=== PATIENT | female | born 1995 | race Caucasian/White ===

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

== ENCOUNTER 2022-09-11 21:40 | Outpatient (CLI) | payer BC ==
[2022-09-11 22:47] LABS: Appearance,Urine Cloudy (Clear); Bacteria,Urine Rare /hpf; Bilirubin,Urine Negative (Negative); Blood,Urine Negative (Negative); Color,Urine Yellow; Glucose,Urine (UA) Negative (Negative); Ketones,Urine 4+ (Negative); Leukocyte Esterase,Urine Trace (Negative); Mucus,Urine Few /hpf; Nitrite,Urine Negative (Negative); PH, Urine 5.5 (5.0-8.0); Protein,Urine Trace (Negative); RBC,Urine <1 /hpf (0-5); Specific Gravity,Urine 1.025 (1.001-1.035); Squamous Epithelial Cell,Urine 6 /hpf (0-4); Urobilinogen,Urine <2.0 mg/dL (<2.0); WBC,Urine 3 /hpf (0-5)
[2022-09-11] MEDS ORDERED: DOCUSATE 100 MG CAP PO STA (23:01)
[2022-09-11] MEDS ORDERED: ONDANSETRON 4 MG/2 ML VIAL IVP STA (23:02)
[2022-09-11] MEDS ORDERED: LACTATED RINGERS 1,000 ML IV SCH (23:15)
[2022-09-12 00:11] VITALS: BP 130/74; PULSE 118; RESP 16; TEMP 97.7
--- NOTE | 2022-09-12 11:06 | P.MSEPDOC ---
Presenting Problems - Arrival Data Date of Arrival on Unit: 09/12/22 Time of Arrival on Unit: 21:40 Mode of Transport: Ambulatory - Complaint OB-Reason for Admission/Chief Complaint: Acute Nausea/Vomiting Comment: Patient arrived from home stated that she. has been nauseous, cramping and abdominal pain. [id number] today. Patient states that she has a small. diarrhea BM then felt like she still had to go but. could not. Patient states she has had regular BMS up. until today. Patient is a DOM and see a Dr. Richards out of [facility]. Patient states her only. complication this is GDM and baby LGR Medical History - Information : 1 Para: 0 Term: 0 : 0 Abortions: Spontaneous or Elective: 0 Number of Living Children: 0 - Gestational Age Gestational Age by ROCHELLE (wks/days): 34 Weeks and 1 Days - History Complications: GDM Review of Systems - Review of Systems Constitutional: No problems Breast: No problems ENT: No problems Cardiovascular: No problems Respiratory: No problems Gastrointestinal: No problems Genitourinary: No problems Musculoskeletal: No problems Neurological: No problems Skin: No problems Vital Signs - Temperature Temperature: 97.7 F Temperature Source: Temporal Artery Scan - Pulse Pulse Oximetery Pulse Rate: 118 Pulse Assessment Method: Pulse Oximetry - Respirations Respiratory Rate: 16 Oxygen Delivery Method: Room Air O2 Sat by Pulse Oximetry: 97 - Blood Pressure Right Arm Blood Pressure: 130/74 Blood Pressure Mean: 92 Blood Pressure Source: Automatic Cuff Medical Screen Scoring - Cervical Exam Dilation (cm): 0 Membranes: Intact - Assessment - Baby A Baseline FHR: 125 Heart Rate - NICHD Category: Category I (Normal) NST: Reactive Physician Notification - Physician Notified Physician Notified Date: 09/12/22 Physician Notified Time: 22:13 Physician: Taylor Moses Order Received: Yes - Notification Comment Comment: Patients LR IV bolus is finished patient states that she feels much better and. is not nauseated anymore. Patient educated on staying hydrated and discharge. instructions. S/S when to return or call Patient will follow up with DR. Ball. office tomorrow and let them know about her triage here at [facility]. IV discontinued. Patient. ambulated out of triage with S/O. Maternal Triage Index - Non-Urgent/Priority 4 Non-Urgent Priority 4: Yes Criteria Met for Priority 4: Patient arrived from home stated that she. has been nauseous, cramping and abdominal pain. [id number] today. Patient states that she has a small. diarrhea BM then felt like she still had to go but. could not. Patient states she has had regular BMS up. until today. Patient is a DOM and see a Dr. Lr. out of [facility]. Patient states her only. complication this is GDM and baby LGR Disposition - Disposition OB Disposition: Admit, Discharge to home Discharge Date: 09/12/22 Discharge Time: 23:49 I agree with the RN Medical Screening Exam: Yes Case reviewed; plan agreed upon as documented in EMR&OBIX.: Yes Diagnosis: DEHYDRATION
== END 2022-09-11 23:49 | disposition home or self-care (01) ==
LOC: FBPOP 21:40
PROVIDERS: ATTEND Obstetrics & Gynecology
DX: O99.283 Endocrine, nutritional and metabolic diseases complicating pregnancy, third trimester (principal); E86.0 Dehydration; Z3A.34 34 weeks gestation of pregnancy; O24.419 Gestational diabetes mellitus in pregnancy, unspecified control; Z88.7 Allergy status to serum and vaccine
CPT/HCPCS: 59025; 99213; 96367; 96374; 96375; 36415; 81001; J2405

== ENCOUNTER 2024-01-18 19:51 | Emergency (ER) | payer BC ==
[2024-01-18 19:56] VITALS: TEMP 97.8
--- NOTE | 2024-01-18 20:22 | ED ---
Abdominal Pain HPI - General Chief Complaint: Abdominal Pain Stated Complaint: Cramping 10 weeks Time Seen by Provider: 01/18/24 20:19 Source: patient Mode of arrival: ambulatory Limitations: no limitations - History of Present Illness Initial Comments: Patient is a -0-0-1 at approximately 10 weeks gestation (dated by her last ultrasound per patient) who presents to the ED with her boyfriend for evaluation. Patient states that she has had lower abdominal/pelvic cramping since earlier today. Patient states that her cramping is currently improved. Patient also states that she passed a "dime-sized clot" vaginally earlier today, but she has not had any further bleeding since then. Patient denies trauma or injury, fever or chills, headache, chest pain, dyspnea, palpitations, dizziness, upper abdominal pain, nausea or vomiting, diarrhea, constipation, bloody or melanotic stool, dysuria or urinary symptoms, or any other symptoms or complaints. Patient states that she gets her care from an MEDICAL DEVICE ENGINEER doctor at [facility]. - Related Data Home Medications Medication Instructions Recorded Confirmed Vit No.179/Iron/Folic 1 each PO 09/11/22 [ Tablet] Allergies Allergy/AdvReac Type Severity Reaction Status Date / Time hepatitis B virus vaccine Allergy Anaphylaxis Verified 01/18/24 19:56 Review of Systems ROS Statement: Those systems with pertinent positive or pertinent negative responses have been documented in the HPI. ROS Other: All systems not noted in ROS Statement are negative. Past Medical History Additional Past Medical History / Comment(s): hypotension during stress History of Any Multi-Drug Resistant Organisms: None Reported Past Surgical History: No Surgical Hx Reported Past Psychological History: No Psychological Hx Reported Smoking Status: Never smoker Past Alcohol Use History: None Reported Past Drug Use History: None Reported General Exam Limitations: no limitations General appearance: alert, in no apparent distress Eye exam: Present: normal appearance ENT exam: Present: mucous membranes moist Respiratory exam: Present: normal lung sounds bilaterally. Absent: respiratory distress, wheezes, rales, rhonchi, stridor Cardiovascular Exam: Present: regular rate, normal rhythm, normal heart sounds, other (Normal radial pulses bilaterally) GI/Abdominal exam: Present: soft. Absent: distended, tenderness, guarding Neurological exam: Present: alert, oriented X3 Psychiatric exam: Present: normal affect Skin exam: Present: warm, dry, normal color Course Vital Signs 01/18/24 01/18/24 19:54 23:20 Temperature 97.8 F Pulse Rate 74 82 Respiratory 16 17 Rate Blood Pressure 146/88 117/78 O2 Sat by Pulse 96 98 Oximetry - Reevaluation(s) Reevaluation #1: 01/18/24 23:16 Patient denies development of any new symptoms while in the ED, and she states that her cramping has now improved. Patient has not had any further vaginal bleeding while in the ED. Patient and boyfriend are aware the patient's test results, and patient feels comfortable being discharged home at this time. She was counseled about threatened abortions and pelvic rest. She was instructed to call her [facility] MEDICAL DEVICE ENGINEER's clinic tomorrow morning to schedule a close follow- up appointment, as well as have serial hCG levels checked-> she agrees to do so. She was clearly explained return and follow-up instructions. Medical Decision Making - Medical Decision Making Was pt. sent in by a medical professional or institution (, PA, FITTER HAND, urgent care, hospital, or retirement...) When possible be specific @ -No Did you speak to anyone other than the patient for history (EMS, parent, family, police, friend...)? What history was obtained from this source @ -No Did you review nursing and triage notes (agree or disagree)? Why? @ -I reviewed and agree with nursing and triage notes Were old charts reviewed (outside hosp., previous admission, EMS record, old EKG, old radiological studies, urgent care reports/EKG's, retirement records)? Report findings @ -No old charts were reviewed Differential Diagnosis (chest pain, altered mental status, abdominal pain women, abdominal pain men, vaginal bleeding, weakness, fever, dyspnea, syncope, headache, dizziness, GI bleed, back pain, seizure, CVA, palpatations, mental health, musculoskeletal)? @ -Vaginal bleeding, pelvic cramping, threatened , ectopic , complete , incomplete , UTI, this is not a complete list EKG interpreted by me (3pts min.). @ -None done X-rays interpreted by me (1pt min.). @ -None done CT interpreted by me (1pt min.). @ -None done What testing was considered but not performed or refused? (CT, X-rays, U/S, labs)? Why? @ -None What meds were considered but not given or refused? Why? @ -None Did you discuss the management of the patient with other professionals (professionals i.e. , PA, FITTER HAND, lab, RT, psych nurse, nephrology social worker, drawing operator, teacher, traffic control officer, caser shoe parts)? Give summary @ -No Was smoking cessation discussed for >3mins.? @ -No Was critical care preformed (if so, how long)? @ -No Were there social determinants of health that impacted care today? How? (Homelessness, low income, unemployed, alcoholism, drug addiction, transportation, low edu. Level, literacy, decrease access to med. care, longterm, rehab)? @ -No Was there de-escalation of care discussed even if they declined (Discuss DNR or withdrawal of care, Hospice)? DNR status @ -No What co-morbidities impacted this encounter? (DM, HTN, Smoking, COPD, CAD, Cancer, CVA, ARF, Chemo, Hep., AIDS, mental health diagnosis, sleep apnea, morbid obesity)? @ -None Was patient admitted / discharged? Hospital course, mention meds given and route, prescriptions, significant lab abnormalities, going to OR and other pertinent info. @ -Patient's pelvic ultrasound demonstrates a single live IUP without any complications. Patient's blood type is A+. Patient states that her cramping has improved while in the ED. Patient is in a hurry to be discharged home, and she agrees to follow-up closely with her MEDICAL DEVICE ENGINEER doctor at [facility]. She was instructed to call tomorrow morning to have serial hCG levels ordered. Will discharge patient home with her boyfriend at this time. Undiagnosed new problem with uncertain prognosis? @ -No Drug Therapy requiring intensive monitoring for toxicity (Heparin, Nitro, Insulin, Cardizem)? @ -No Were any procedures done? @ -No Diagnosis/symptom? @ -Threatened Acute, or Chronic, or Acute on Chronic? @ -[Acute Uncomplicated (without systemic symptoms) or Complicated (systemic symptoms)? @ -Uncomplicated Side effects of treatment? @ -No Exacerbation, Progression, or Severe Exacerbation? @ -No Poses a threat to life or bodily function? How? (Chest pain, USA, SD, pneumonia, PE, COPD, DKA, ARF, appy, cholecystitis, CVA, Diverticulitis, Homicidal, Suicidal, threat to staff... and all critical care pts) @ -No - Lab Data Result diagrams: 01/18/24 20:21 01/18/24 20:21 Lab Results 01/18/24 01/18/24 01/18/24 Range/Units 20:21 20:21 20:26 WBC 10.2 (3.8-10.6) k/uL RBC 4.68 (3.80-5.40) m/uL Hgb 14.0 (11.4-16.0) gm/dL Hct 42.9 (34.0-46.0) % MCV 91.7 (80.0-100.0) fL MCH 30.0 (25.0-35.0) pg MCHC 32.7 (31.0-37.0) g/dL RDW 12.8 (11.5-15.5) % Plt Count 355 (150-450) k/uL MPV 6.9 Neutrophils % 66 % Lymphocytes % 23 % Monocytes % 6 % Eosinophils % 3 % Basophils % 0 % Neutrophils # 6.7 (1.3-7.7) k/uL Lymphocytes # 2.3 (1.0-4.8) k/uL Monocytes # 0.6 (0-1.0) k/uL Eosinophils # 0.3 (0-0.7) k/uL Basophils # 0.0 (0-0.2) k/uL Sodium 136 L (137-145) mmol/L Potassium 4.0 (3.5-5.1) mmol/L Chloride 104 (98-107) mmol/L Carbon Dioxide 19 L (22-30) mmol/L Anion Gap 13 mmol/L BUN 10 (7-17) mg/dL Creatinine 0.55 (0.52-1.04) mg/dL Est GFR (CKD-EPI)AfAm >90 (>60 ml/min/1.73 sqM) Est GFR (CKD-EPI)NonAf >90 (>60 ml/min/1.73 sqM) Glucose 91 (74-99) mg/dL Calcium 10.2 (8.4-10.2) mg/dL Total Bilirubin 0.6 (0.2-1.3) mg/dL AST 24 (14-36) U/L ALT 16 (4-34) U/L Alkaline Phosphatase 63 (38-126) U/L Total Protein 7.0 (6.3-8.2) g/dL Albumin 4.1 (3.5-5.0) g/dL Lipase 75 (23-300) U/L HCG, Quant 94564.7 mIU/mL Urine Color Colorless Urine Appearance Clear (Clear) Urine pH 6.0 (5.0-8.0) Ur Specific [place] 1.013 (1.001-1.035) Urine Protein Negative (Negative) Urine Glucose (UA) Negative (Negative) Urine Ketones Negative (Negative) Urine Blood Negative (Negative) Urine Nitrite Negative (Negative) Urine Bilirubin Negative (Negative) Urine Urobilinogen <2.0 (<2.0) mg/dL Ur Leukocyte Esterase Negative (Negative) Blood Type Blood Type Confirm Blood Type Recheck Bld Type Recheck Status Antibody Screen Spec Expiration Date 01/18/24 01/18/24 Range/Units 23:05 23:10 WBC (3.8-10.6) k/uL RBC (3.80-5.40) m/uL Hgb (11.4-16.0) gm/dL Hct (34.0-46.0) % MCV (80.0-100.0) fL MCH (25.0-35.0) pg MCHC (31.0-37.0) g/dL RDW (11.5-15.5) % Plt Count (150-450) k/uL MPV Neutrophils % % Lymphocytes % % Monocytes % % Eosinophils % % Basophils % % Neutrophils # (1.3-7.7) k/uL Lymphocytes # (1.0-4.8) k/uL Monocytes # (0-1.0) k/uL Eosinophils # (0-0.7) k/uL Basophils # (0-0.2) k/uL Sodium (137-145) mmol/L Potassium (3.5-5.1) mmol/L Chloride (98-107) mmol/L Carbon Dioxide (22-30) mmol/L Anion Gap mmol/L BUN (7-17) mg/dL Creatinine (0.52-1.04) mg/dL Est GFR (CKD-EPI)AfAm (>60 ml/min/1.73 sqM) Est GFR (CKD-EPI)NonAf (>60 ml/min/1.73 sqM) Glucose (74-99) mg/dL Calcium (8.4-10.2) mg/dL Total Bilirubin (0.2-1.3) mg/dL AST (14-36) U/L ALT (4-34) U/L Alkaline Phosphatase (38-126) U/L Total Protein (6.3-8.2) g/dL Albumin (3.5-5.0) g/dL Lipase (23-300) U/L HCG, Quant mIU/mL Urine Color Urine Appearance (Clear) Urine pH (5.0-8.0) Ur Specific [place] (1.001-1.035) Urine Protein (Negative) Urine Glucose (UA) (Negative) Urine Ketones (Negative) Urine Blood (Negative) Urine Nitrite (Negative) Urine Bilirubin (Negative) Urine Urobilinogen (<2.0) mg/dL Ur Leukocyte Esterase (Negative) Blood Type A Positive Blood Type Confirm A Positive Blood Type Recheck No Previous Record Bld Type Recheck Status CABO Indicated Antibody Screen NEGATIVE Spec Expiration Date 01/21/2024 - 2309 - Radiology Data OB ultrasound: Single live intrauterine with calculated ultrasound age of 10 weeks 2 days by crown-rump length. Disposition Clinical Impression: , Vaginal bleeding, Threatened Disposition: HOME SELF-CARE Condition: Stable Instructions (If sedation given, give patient instructions): Threatened Miscarriage (ED) Additional Instructions: Return to the ER immediately should you develop new or worsening pain, increased bleeding, feeling dizzy or faint, shortness of breath, a fever, or new or worsening symptoms. Follow-up closely with your MEDICAL DEVICE ENGINEER doctor at [facility]. Call tomorrow morning for an appointment and to have your lab work (serial hCG levels) ordered for you. Is patient prescribed a controlled substance at d/c from ED?: No Referrals: None,Stated [Primary Care Provider] - 1-2 days Time of Disposition: 23:17
[2024-01-18 20:35] LABS: Basophils % (A) 0 %; Eosinophils # (A) 0.3 k/uL (0-0.7); Eosinophils % (A) 3 %; HCT 42.9 % (34.0-46.0); Lymphocytes # (A) 2.3 k/uL (1.0-4.8); Lymphocytes % (A) 23 %; MCHC 32.7 g/dL (31.0-37.0); MCV 91.7 fL (80.0-100.0); Mean Platelet Volume 6.9; Monocytes # (A) 0.6 k/uL (0-1.0); Monocytes % (A) 6 %; Neutrophils # (A) 6.7 k/uL (1.3-7.7); Neutrophils % (A) 66 %; Platelet Count 355 k/uL (150-450); RBC 4.68 m/uL (3.80-5.40); RDW 12.8 % (11.5-15.5); WBC 10.2 k/uL (3.8-10.6)
[2024-01-18 20:44] LABS: ALT 16 U/L (4-34); AST 24 U/L (14-36); African American GFR (CKD) >90 (>60 ml/min/1.73 sqM); Albumin 4.1 g/dL (3.5-5.0); Alkaline Phosphatase 63 U/L (38-126); Anion Gap 13 mmol/L; Blood Urea Nitrogen 10 mg/dL (7-17); Calcium 10.2 mg/dL (8.4-10.2); Carbon Dioxide 19 mmol/L (22-30); Chloride 104 mmol/L (98-107); Glucose 91 mg/dL (74-99); Lipase 75 U/L (23-300); Non-African American GFR(CKD) >90 (>60 ml/min/1.73 sqM); Sodium 136 mmol/L (137-145); Total Bilirubin 0.6 mg/dL (0.2-1.3)
[2024-01-18 21:07] LABS: Appearance,Urine Clear (Clear); Bilirubin,Urine Negative (Negative); Blood,Urine Negative (Negative); Color,Urine Colorless; Glucose,Urine (UA) Negative (Negative); Ketones,Urine Negative (Negative); Leukocyte Esterase,Urine Negative (Negative); Nitrite,Urine Negative (Negative); Protein,Urine Negative (Negative); Specific Gravity,Urine 1.013 (1.001-1.035); Urobilinogen,Urine <2.0 mg/dL (<2.0)
[2024-01-18 21:25] LABS: HCG,Quantitative Serum 71829.7 mIU/mL
--- NOTE | 2024-01-18 21:33 | US ---
EXAMINATION TYPE: Transabdominal DATE OF EXAM: 01/18/2024 9:24 PM COMPARISON: NONE CLINICAL INDICATION: Female, 28 years old with history of Vaginal bleeding, ; Pt states cramp ing and light vaginal bleeding that started today EXAM PERFORMED: Transabdominal (TA) EXAM MEASUREMENTS: GESTATIONAL AGE / DATING Physician Established: Not yet established Dates by LMP: (17 weeks/5 days) EDC: 06/22/2024 Pt states very irregular periods Dates by First Scan: No previous this is first scan Dates by Current Scan for: (10 weeks/2 days) EDC: 08/13/2024 MATERNAL ANATOMY Uterus: 12.1 x 5.9 x 7.2 cm Right Ovary: 2.9 x 2.3 x 1.6 cm Left Ovary: 3.0 x 2.5 x 1.7 cm Post CDS / Adnexa: Pocket of free fluid within right adnexa= 3.3 x 1.9 x 3.6 cm Presence of subchorionic bleed: No GESTATION / SURVEY CRL: 3.3 cm (10 weeks/2 days) Yolk Sac (normal less than 6mm): 4mm Heart Rate: 169 bpm Rhythm: Normal IUP: Viable IUP Beta HcG (if available): Not available at this time IMPRESSION:Single live intrauterine with calculated ultrasound age of 10 weeks 2 days by cr own rump length. [facility], Workstation: [id number], 01/18/2024 9:30 PM
[2024-01-18 23:21] VITALS: BP 117/78; PULSE 82; RESP 17
== END 2024-01-18 23:41 | disposition home or self-care (01) ==
LOC: EC 19:51
CPT/HCPCS: 36415; 76801; 80053; 81003; 83690; 84702; 85025; 86850; 86900; 86901; 99284